=== PATIENT | female | born 1990 | race African-American/Black ===

== ENCOUNTER 2025-07-28 21:18 | Emergency (ER) | payer OTHER ==
[~2025-07-28] VITALS: Ht 172.7 cm; Wt 115.5 kg
[2025-07-28] MEDS: PREDNISONE 20MG TABLET PO ONE (23:04)
[2025-07-28 23:33] VITALS: PULSE 79; RESP 24; O2SAT 98
[2025-07-28] MEDS: ALBUTEROL (0.083%) 2.5MG/3ML NEB HHN ONE (23:33)
[2025-07-28] MEDS ORDERED: ALBU18HF2 IH (23:54)
[2025-07-28] MEDS ORDERED: P50 MT (23:54)
[2025-07-28] MEDS ORDERED: AZIT250T12 MT (23:54)
[2025-07-29 00:18] VITALS: BP 126/78; PULSE 96; RESP 20; TEMP 36.7; O2SAT 99
== END 2025-07-29 00:21 | disposition home or self-care (01) ==
LOC: ER 21:18
DX: J18.9 Pneumonia, unspecified organism (principal); R00.0 Tachycardia, unspecified
CPT/HCPCS: 81025; 71045; 94640; 93005; 98960; 99283; J7512; Z7610 ×3; 94070; 94664